=== PATIENT | female | born 1980 | race Caucasian/White ===

== ENCOUNTER → 2016-12-13 | Outpatient (CLI) | payer OTHER ==
[2016-12-13 12:58] LABS: BARBITURATES NEG (NEG); BENZODIAZEPINES NEG (NEG); CANNABINOIDS NEG (NEG); COCAINE NEG (NEG); METHADONE NEG (NEG); OPIATES NEG (NEG); PHENCYCLIDINE NEG (NEG)
--- NOTE | 2016-12-13 14:13 | RAD ---
EXAM: Brain MRI without contrast. HISTORY: Imbalance. TECHNIQUE: Multiplanar, multisequence magnetic resonance imaging of the brain was performed without contrast. COMPARISON: None. FINDINGS: There is no restricted diffusion to suggest acute or subacute infarction. There is no susceptibility effect to suggest hemorrhage. There is no mass effect or midline shift. There is no hydrocephalus. No suspicious white matter lesion is seen. There is artifactual hyperintensity on axial flair images within the aaron, not confirmed on multiple sequences. The orbits are unremarkable. There is a right maxillary sinus mucous retention cyst. The mastoid air cells are clear. The right vertebral artery slightly dominant. There are normal flow voids within the cerebral vessels. There are tiny retention cysts within the posterior nasopharynx. IMPRESSION: No acute intracranial finding. Electronically signed by: Roula Kessler MD (12/13/2016 2:10 PM) [email or web address]
== END | disposition home or self-care (01) ==
LOC: MRI 12:17
PROVIDERS: ATTEND Psychiatry & Neurology Neurology
DX: J39.2 Other diseases of pharynx (principal); J34.1 Cyst and mucocele of nose and nasal sinus; R53.1 Weakness; R20.0 Anesthesia of skin
CPT/HCPCS: 36415; 70551; 80307; 82550; 82607; 86141; G0479

== ENCOUNTER → 2017-02-05 | Outpatient (CLI) | payer OTHER ==
--- NOTE | 2017-02-06 10:54 | RAD ---
Indication: Dizziness for 3 months. Technique: CT temporal bones was performed including thin axial imaging and coronal and sagittal reformats. Multiple series had to be reprocessed by the technologist several times to get proper series. Standard series were not available for review until the No comparison is available. One or more of the following individualized dose reduction techniques were utilized for this examination: 1. Automated exposure control 2. Adjustment of the mA and/or kV according to patient size 3. Use of iterative reconstruction technique Findings: Middle ears and mastoid air cells are aerated. Ossicular relationships appear maintained. There is no evidence of vascular dehiscence. Cochlea, vestibule, and semicircular canals are within normal limits. There is no evidence of dehiscence of the semicircular canals. There is no erosion of the scutum. There is no widening of the internal auditory canals. Retention cyst is noted in the right maxillary sinus. Impression: Normal CT temporal bones. If there is concern for internal auditory canal mass or cerebellopontine angle mass, consider MRI.
== END | disposition home or self-care (01) ==
LOC: CT 12:22
PROVIDERS: ATTEND Otolaryngology
DX: J34.1 Cyst and mucocele of nose and nasal sinus (principal)
CPT/HCPCS: 70480

== ENCOUNTER → 2021-03-22 | Outpatient (CLI) | payer OTHER ==
--- NOTE | 2021-03-22 08:31 | KCIC ---
EXAMINATION: XR CHEST 2V. HISTORY: 40 years Female Reason: Productive cough, diagnosed w/COVID earlier this month. COMPARISON: None. Findings: The lungs are clear. The heart size is at the upper limits of normal. There is no effusion or pneumothorax. The mediastinum and lary appear unremarkable. Impression: No acute process. Electronically signed by: Bandar Sanders MD (03/22/2021 8:28 AM) [id number]
== END ==
LOC: KCIC 08:02
PROVIDERS: ATTEND Nurse Practitioner Family
DX: R05.9 Cough, unspecified (principal)
CPT/HCPCS: 71046